=== PATIENT | female | born 1955 | race Caucasian/White ===

== ENCOUNTER 2019-07-05 13:58 | Emergency (ER) | payer BC ==
[~2019-07-05] VITALS: Ht 165.1 cm; Wt 65.8 kg
[2019-07-05 14:27] LABS: BASOPHILS % (AUTO) 0.4 % (0.0-2.0); EOSINOPHILS % (AUTO) 0.9 % (0.0-6.0); HEMATOCRIT 38 % (33-45); HEMOGLOBIN 13.1 g/dL (11.5-14.8); LYMPHOCYTES # (AUTO) 1.6 /CMM (0.8-4.8); LYMPHOCYTES % (AUTO) 21.4 % (20.0-44.0); MEAN CORPUSCULAR HGB CONC 34 g/dl (31.0-36.0); MEAN CORPUSCULAR VOLUME 100 fL (82-100); MONOCYTES # (AUTO) 0.6 /CMM (0.1-1.30); MONOCYTES % (AUTO) 7.9 % (2.0-12.0); NEUTROPHILS # (AUTO) 5.1 /CMM (1.8-8.9); NEUTROPHILS % (AUTO) 69.4 % (43.0-81.0); PLATELET COUNT (AUTO) 284 /CMM (150-450); RED BLOOD CELL COUNT(AUTO) 3.85 MIL/uL (4.0-5.2); WHITE BLOOD COUNT (AUTO) 7.4 K/uL (4.3-11.0)
[2019-07-05] MEDS ORDERED: MAG HYDROX/AL HYDROX/SIMETH 30 ML UDC PO ONE (14:30)
[2019-07-05 14:34] LABS: CALCIUM, SERUM 8.9 mg/dL (8.5-10.1); CARBON DIOXIDE 29 mmol/L (21-32); CHLORIDE 101 mmol/L (98-107); CREATININE 1.1 mg/dL (0.6-1.3); GLUCOSE 96 mg/dL (74-106); POTASSIUM 3.7 mmol/L (3.5-5.1); SODIUM SERUM 138 mmol/L (136-145); UREA NITROGEN, BLOOD 16 mg/dL (7-18)
[2019-07-05] MEDS ORDERED: MAG HYDROX/AL HYDROX/SIMETH 30 ML UDC ONE (14:53)
--- NOTE | 2019-07-05 14:55 | NUR ---
BIB [facility] C/O L SIDED CHEST PAIN, NO RADIATING STARTED 1300 TODAY WITH BURNING SENSATION, WHILE WALKING HER DOG. PT AAOX4, VSS. RR EVEN & UNLABORED. DENIES SOB, DIZZINESS, N/V, WEAKNESS @ THIS TIME. SEEN & EVAL'D BY DR. GRACE. PLACED ON OPERATIONS OFFICER AFLOAT, SR, NO ECTOPY NOTED. MEDICATED ORDERED & WILL CONT TO MONITOR.
--- NOTE | 2019-07-05 17:51 | NUR ---
Patient discharged to home in stable condition. Written and verbal after care instructions given. Patient verbalizes understanding of instruction. IV removed. Catheter intact and site benign. Pressure and 4x4 applied to site. No bleeding noted.
[2019-07-05 17:52] VITALS: BP 115/68
== END 2019-07-05 17:52 | disposition home or self-care (01) ==
LOC: ER 14:02
DX: R07.89 Other chest pain (principal); R00.1 Bradycardia, unspecified; Z88.9 Allergy status to unspecified drugs, medicaments and biological substances
CPT/HCPCS: 36415; 71045-TC; 80048-TC; 84484-TC; 85025-TC